=== PATIENT | female | born 1960 | race Asian ===

== ENCOUNTER 2017-11-05 06:20 | Day surgery (SDC) | payer OTHER ==
[2017-11-05] MEDS ORDERED: FENTAnyl 50 MCG/ML VIAL (07:49)
[2017-11-05] MEDS ORDERED: MIDAZOLAM 1 MG/ML 2 ML INJ (07:49)
== END 2017-11-05 09:50 | disposition home or self-care (01) ==
LOC: GIL 06:20
DX: K21.9 Gastro-esophageal reflux disease without esophagitis (principal); K29.70 Gastritis, unspecified, without bleeding
CPT/HCPCS: 43239; 87081

== ENCOUNTER 2017-12-17 12:14 | Day surgery (SDC) | payer OTHER ==
[2017-12-17] MEDS ORDERED: MIDAZOLAM 1 MG/ML 2 ML INJ ×2 (14:31)
[2017-12-17] MEDS ORDERED: FENTAnyl 50 MCG/ML VIAL (14:31)
== END 2017-12-17 15:02 | disposition home or self-care (01) ==
LOC: GIL 12:14
DX: Z12.11 Encounter for screening for malignant neoplasm of colon (principal); K64.8 Other hemorrhoids
CPT/HCPCS: 45378

== ENCOUNTER 2019-05-11 09:42 | Emergency (ER) | payer OTHER | END 2019-05-11 11:33 | disposition home or self-care (01) | LOC: FTE 09:42 | DX: S80.12XA Contusion of left lower leg, initial encounter (principal); W01.0XXA Fall on same level from slipping, tripping and stumbling without subsequent striking against object, initial encounter; Y92.9 Unspecified place or not applicable | CPT/HCPCS: 73562; 73590; 99283-25 ==